=== PATIENT | male | born 2000 | race Caucasian/White ===

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

== ENCOUNTER 2021-06-24 17:23 | Emergency (ER) | payer SELFPAY ==
[2021-06-24] MEDS ORDERED: Ondansetron 4 MG Tab.DIS PO ONE ×2 (17:24→17:26)
[2021-06-24] MEDS: Loperamide 2 MG Cap PO ONE ×2 (18:03→18:12)
[2021-06-24 19:11] VITALS: BP 124/68; PULSE 100
== END 2021-06-24 18:40 | disposition home or self-care (01) ==
LOC: FB.ED 17:23
DX: R11.2 Nausea with vomiting, unspecified (principal); R19.7 Diarrhea, unspecified; J45.909 Unspecified asthma, uncomplicated; Z88.8 Allergy status to other drugs, medicaments and biological substances
CPT/HCPCS: 99283; A9270-GY; Q0162

== ENCOUNTER 2021-08-27 21:06 | Emergency (ER) | payer OTHER ==
[2021-08-27 23:37] VITALS: BP 143/72; PULSE 74
== END 2021-08-27 22:00 | disposition home or self-care (01) ==
LOC: FB.ED 21:06
DX: S60.811A Abrasion of right wrist, initial encounter (principal); W17.89XA Other fall from one level to another, initial encounter
CPT/HCPCS: 99281; 99283

== ENCOUNTER 2021-10-09 16:40 | Emergency (ER) | payer SELFPAY ==
[2021-10-09] MEDS ORDERED: Ondansetron 4 MG Tab.DIS PO ONE (16:41)
[2021-10-09] MEDS ORDERED: Sulfamethoxazole/Trimethoprim 800-160 MG Tab PO ONE (16:41)
[2021-10-09] MEDS ORDERED: Ondansetron 4 MG/2 ML SDV IVPUSH ONE (18:12)
[2021-10-09] MEDS ORDERED: Sodium Chloride 0.9% 1,000 ML IV SCH (18:15)
[2021-10-09 19:58] VITALS: BP 146/74; PULSE 93
== END 2021-10-09 19:44 | disposition home or self-care (01) ==
LOC: FB.ED 16:40
DX: K52.9 Noninfective gastroenteritis and colitis, unspecified (principal); F17.210 Nicotine dependence, cigarettes, uncomplicated
CPT/HCPCS: 36415; 80048; 85025; 96361; 96374; 99284-25; A9270-GY; J2405; J7030; Q0162

== ENCOUNTER 2022-03-13 16:35 | Emergency (ER) | payer SELFPAY ==
[2022-03-13 17:02] VITALS: BP 154/89; PULSE 92
[2022-03-13] MEDS ORDERED: Ondansetron 4 MG/2 ML SDV IVPUSH ONE (17:03)
[2022-03-13] MEDS ORDERED: Sodium Chloride 0.9% 10 ML Syringe FLUSH PRN (17:03)
[2022-03-13] MEDS ORDERED: Sodium Chloride 0.9% 1,000 ML IV SCH (17:15)
[2022-03-13 17:29] LABS: ESTIMATED GFR 110 mL/min (>60)
[2022-03-13] MEDS ORDERED: Prochlorperazine 10 MG/2 ML SDV IVPUSH ONE (17:31)
[2022-03-13] MEDS ORDERED: Prochlorperazine 10 MG/2 ML SDV IVPUSH STA (17:48)
== END 2022-03-13 18:09 | disposition home or self-care (01) ==
LOC: FB.ED 16:35
DX: K52.9 Noninfective gastroenteritis and colitis, unspecified (principal); F17.210 Nicotine dependence, cigarettes, uncomplicated; Z88.8 Allergy status to other drugs, medicaments and biological substances; Z86.16 Personal history of COVID-19
CPT/HCPCS: 80048; 85025; 96361; 96374; 96375; 99284-25; J0780; J2405; J7030

== ENCOUNTER 2022-07-26 00:59 | Emergency (ER) | payer SELFPAY ==
[2022-07-26] MEDS ORDERED: Ondansetron 4 MG/2 ML SDV IVPUSH ONE (01:19)
[2022-07-26] MEDS ORDERED: Ketorolac 30 MG/ML SDV IVPUSH ONE (01:19)
[2022-07-26] MEDS ORDERED: Sodium Chloride 0.9% 1,000 ML IV SCH (01:30)
== END 2022-07-26 03:05 | disposition home or self-care (01) ==
LOC: FB.ED 00:59
DX: E86.0 Dehydration (principal); J45.909 Unspecified asthma, uncomplicated; Z88.8 Allergy status to other drugs, medicaments and biological substances
CPT/HCPCS: 96361; 96374; 96375; 99283; J1885; J2405; J7030

== ENCOUNTER 2023-06-03 11:14 | Emergency (ER) | payer SELFPAY ==
[2023-06-03] MEDS ORDERED: Sodium Chloride 0.9% 10 ML Syringe FLUSH PRN (11:45)
[2023-06-03] MEDS ORDERED: Prochlorperazine 10 MG/2 ML SDV IVPUSH ONE (11:45)
[2023-06-03] MEDS ORDERED: Sodium Chloride 0.9% 1,000 ML IV SCH (11:45)
[2023-06-03 12:10] LABS: BASOPHILS PERCENT AUTO 0.4 % (0.3-3.8); BLOOD UREA NITROGEN,BUN 12 mg/dL (7-18); CALCIUM 9.8 mg/dL (8.6-10.2); CARBON DIOXIDE,CO2 27 mmol/L (21-32); CHLORIDE,CL 100 mmol/L (100-110); CREATININE 0.8 mg/dL (0.70-1.30); EOSINOPHILS PERCENT AUTO 0.2 % (0.1-6.8); ESTIMATED GFR 128 mL/min (>60); GLUCOSE RANDOM 105 mg/dL (80-116); HEMATOCRIT 44.8 % (38.3-50.1); HEMOGLOBIN 15.5 g/dL (12.9-17.7); LYMPHOCYTES ABSOLUTE AUTO 1.2 x10-3/uL (0.5-4.5); MEAN CORPUSCULAR HEMOGLOBIN 32.2 pg (27.0-33.3); MEAN CORPUSCULAR HGB CONC 34.5 g/dL (28.7-35.3); MEAN CORPUSCULAR VOLUME 93.2 fL (80.8-98.7); MEAN PLATELET VOLUME 8.2 fL (6.7-11.0); MONOCYTES ABSOLUTE AUTO 0.6 x10-3/uL (0.0-1.2); MONOCYTES PERCENT AUTO 6.6 % (5.5-15.2); NEUTROPHILS ABSOLUTE AUTO 7.6 x10-3/uL (1.7-6.9); NEUTROPHILS PERCENT AUTO 79.8 % (40.3-71.8); PLATELET COUNT,PLT 234 x10(3)uL (117-477); RED BLOOD CELL COUNT 4.81 x10(6)uL (3.90-5.90); RED CELL DISTRIBUTION WIDTH 12.7 % (12.4-15.0); SODIUM,NA 133 mmol/L (135-145); WHITE BLOOD CELL COUNT,WBC 9.5 x10-3/uL (3.2-10.1)
[2023-06-03 12:27] VITALS: BP 133/67; PULSE 100
== END 2023-06-03 12:35 | disposition left against medical advice (07) ==
LOC: FB.ED 11:14
DX: A08.4 Viral intestinal infection, unspecified (principal); E86.0 Dehydration; J45.909 Unspecified asthma, uncomplicated; Z86.16 Personal history of COVID-19; Z88.8 Allergy status to other drugs, medicaments and biological substances
CPT/HCPCS: 36415; 80048; 85025; 96361; 96374; 99283; 99284-25; J0780; J7030

== ENCOUNTER 2023-08-21 12:19 | Emergency (ER) | payer SELFPAY ==
[2023-08-21 12:33] VITALS: BP 122/76; PULSE 102
[2023-08-21] MEDS: Ondansetron 4 MG Tab.DIS PO ONE (12:40)
[2023-08-21] MEDS: Lidocaine 2% Viscous Solution 15 ML UD PO ONE (12:40)
== END 2023-08-21 12:55 | disposition home or self-care (01) ==
LOC: FB.ED 12:19
DX: K05.10 Chronic gingivitis, plaque induced (principal); R11.15 Cyclical vomiting syndrome unrelated to migraine; Z88.8 Allergy status to other drugs, medicaments and biological substances; Z79.899 Other long term (current) drug therapy; Z86.16 Personal history of COVID-19
CPT/HCPCS: 99283; A9270-GY; Q0162

== ENCOUNTER 2023-08-22 02:36 | Emergency (ER) | payer SELFPAY ==
[2023-08-22] MEDS ORDERED: Ondansetron 4 MG Tab.DIS PO ONE (02:37)
[2023-08-22 02:47] VITALS: BP 126/89; PULSE 114
[2023-08-22] MEDS ORDERED: Sodium Chloride 0.9% 10 ML Syringe FLUSH PRN (02:53)
[2023-08-22] MEDS: Ondansetron 4 MG/2 ML SDV IVPUSH ONE (03:05)
[2023-08-22] MEDS: Sodium Chloride 0.9% 1,000 ML IV SCH (03:05)
[2023-08-22 03:07] LABS: HEMATOCRIT 47.1 % (38.3-50.1); HEMOGLOBIN 16.3 g/dL (12.9-17.7); MEAN CORPUSCULAR HEMOGLOBIN 31.7 pg (27.0-33.3); MEAN CORPUSCULAR HGB CONC 34.6 g/dL (28.7-35.3); MEAN CORPUSCULAR VOLUME 91.6 fL (80.8-98.7); MEAN PLATELET VOLUME 7.8 fL (6.7-11.0); PLATELET COUNT,PLT 379 x10(3)uL (117-477); RED BLOOD CELL COUNT 5.14 x10(6)uL (3.90-5.90); WHITE BLOOD CELL COUNT,WBC 12.3 x10-3/uL (3.2-10.1)
[2023-08-22 03:11] LABS: BLOOD UREA NITROGEN,BUN 31 mg/dL (7-18); BUN/CREATININE RATIO 25.8 (9-20); CALCIUM 10.9 mg/dL (8.6-10.2); CARBON DIOXIDE,CO2 25 mmol/L (21-32); CHLORIDE,CL 93 mmol/L (100-110); CREATININE 1.2 mg/dL (0.70-1.30); EST CRCL DRUG DOSING (CG) 96.56 mL/min; ESTIMATED GFR 88 mL/min (>60); GLUCOSE RANDOM 139 mg/dL (80-116); POTASSIUM,K 3.9 mmol/L (3.5-5.3); SODIUM,NA 135 mmol/L (135-145)
[2023-08-22 03:17] LABS: A/G RATIO 0.9; ALANINE AMINOTRANSFERASE,ALT 23 U/L (12-36); ALBUMIN 4.8 g/dL (3.5-5.2); ALKALINE PHOSPHATASE 96 IU/L (56-112); ASPARTATE AMNIOTRANSFERASE,AST 17 IU/L (5-25); BILIRUBIN TOTAL 0.8 mg/dL (0.1-1.3)
[2023-08-22 03:22] LABS: LYMPHOCYTES PERCENT MAN 8 % (13-37); MONOCYTES PERCENT MAN 8 % (4-12); SEG NEUTROPHILS PERCENT MAN 84 % (46-82)
== END 2023-08-22 04:33 | disposition home or self-care (01) ==
LOC: FB.ED 02:36
DX: K21.9 Gastro-esophageal reflux disease without esophagitis (principal); K22.6 Gastro-esophageal laceration-hemorrhage syndrome; Z88.8 Allergy status to other drugs, medicaments and biological substances; R11.15 Cyclical vomiting syndrome unrelated to migraine; F17.210 Nicotine dependence, cigarettes, uncomplicated; Z79.899 Other long term (current) drug therapy; Z86.16 Personal history of COVID-19
CPT/HCPCS: 36415; 80053; 85025; 96374; 99284; 99284-25; J2405; J7030; Q0162

== ENCOUNTER 2023-12-15 14:13 | Emergency (ER) | payer SELFPAY ==
[2023-12-15 14:35] LABS: HEMOGLOBIN 15.2 g/dL (12.9-17.7); MEAN CORPUSCULAR HEMOGLOBIN 31.4 pg (27.0-33.3); MEAN CORPUSCULAR HGB CONC 34.5 g/dL (28.7-35.3); MEAN PLATELET VOLUME 8.1 fL (6.7-11.0); PLATELET COUNT,PLT 321 x10(3)uL (117-477); RED BLOOD CELL COUNT 4.84 x10(6)uL (3.90-5.90); RED CELL DISTRIBUTION WIDTH 13.1 % (12.4-15.0); WHITE BLOOD CELL COUNT,WBC 15.2 x10-3/uL (3.2-10.1)
[2023-12-15 14:38] LABS: BLOOD UREA NITROGEN,BUN 9 mg/dL (7-18); BUN/CREATININE RATIO 8.2 (9-20); CALCIUM 9.9 mg/dL (8.6-10.2); CARBON DIOXIDE,CO2 22 mmol/L (21-32); CHLORIDE,CL 99 mmol/L (100-110); CREATININE 1.1 mg/dL (0.70-1.30); EST CRCL DRUG DOSING (CG) 105.34 mL/min; ESTIMATED GFR 97 mL/min (>60); GLUCOSE RANDOM 130 mg/dL (80-116); POTASSIUM,K 4.5 mmol/L (3.5-5.3); SODIUM,NA 139 mmol/L (135-145)
[2023-12-15] MEDS: Sodium Chloride 0.9% 1,000 ML IV ONE ×2 (14:42→16:10)
[2023-12-15] MEDS: Ondansetron 4 MG/2 ML SDV IVPUSH ONE (14:42)
[2023-12-15 14:44] LABS: A/G RATIO 1.2; ALANINE AMINOTRANSFERASE,ALT 15 U/L (12-36); ALBUMIN 4.8 g/dL (3.5-5.2); ALKALINE PHOSPHATASE 107 IU/L (56-112); ASPARTATE AMNIOTRANSFERASE,AST 16 IU/L (5-25); BILIRUBIN TOTAL 0.8 mg/dL (0.1-1.3); PROTEIN TOTAL,TP 8.8 g/dL (6.0-8.0)
[2023-12-15] MEDS: LORazepam 2 MG/ML SDV IVPUSH SCH (14:47)
[2023-12-15 15:14] LABS: BAND PERCENT MAN 2 % (0-6); LYMPHOCYTES PERCENT MAN 3 % (13-37); MONOCYTES PERCENT MAN 1 % (4-12); SEG NEUTROPHILS PERCENT MAN 94 % (46-82)
[2023-12-15] MEDS: Iopamidol 755 Mg/ML 100 ML Bottle IV SCH (15:22)
[2023-12-15] MEDS: Magnesium Sulfate/Water 2 GM in Premix Bag 1 BAG IV ONE (16:15)
[2023-12-15 16:38] LABS: APPEARANCE,URINE CLEAR (CLEAR); BILIRUBIN,URINE NEGATIVE (NEGATIVE); COLOR,URINE YELLOW (YELLOW); GLUCOSE,URINE NORMAL (NORMAL); KETONES,URINE 50 mg/dL (NEGATIVE); LEUKOCYTE ESTERASE,URINE NEGATIVE (NEGATIVE); NITRITE,URINE NEGATIVE (NEGATIVE); OCCULT BLOOD,URINE NEGATIVE (NEGATIVE); PROTEIN,URINE NEGATIVE (NEGATIVE); UROBILINOGEN,URINE NORMAL (NEGATIVE)
[2023-12-15 16:42] LABS: AMPHETAMINES SCREEN, URINE POSITIVE (NEGATIVE); BENZODIAZEPINES SCREEN,URINE POSITIVE (NEGATIVE); METHAMPHETAMINE SCREEN, URINE POSITIVE (NEGATIVE); THC SCREEN,URINE POSITIVE (NEGATIVE)
[2023-12-15 16:43] LABS: BARBITURATE SCREEN,URINE NEGATIVE (NEGATIVE); BUPRENORPHINE SCREEN,URINE NEGATIVE (NEGATIVE); METHADONE SCREEN, URINE NEGATIVE (NEGATIVE); OXYCODONE SCREEN,URINE NEGATIVE (NEGATIVE)
[2023-12-15 17:18] VITALS: BP 130/66; PULSE 103
== END 2023-12-15 17:27 | disposition home or self-care (01) ==
LOC: FB.ED 14:13
DX: R10.9 Unspecified abdominal pain (principal); R11.2 Nausea with vomiting, unspecified; E86.0 Dehydration; Z88.8 Allergy status to other drugs, medicaments and biological substances; Z86.16 Personal history of COVID-19; Z79.899 Other long term (current) drug therapy
CPT/HCPCS: 36415; 74177; 80053; 80307; 81003; 83690; 83735; 85025; 96361; 96365; 96375; 99284; J2060; J2405; J3475; J7030; Q9967